=== PATIENT | female | born 1985 | race Caucasian/White ===

== ENCOUNTER 2019-02-05 12:05 | Emergency (ER) | payer MEDICAID ==
[~2019-02-05] VITALS: Ht 170.2 cm; Wt 54.0 kg
[2019-02-05 12:08] VITALS: BP 23/69; PULSE 80; RESP 18; Ht 170.2 cm; Wt 54.0 kg
[2019-02-05] MEDS ORDERED: ONDANSETRON (ODT) 4 MG TAB ODT STA (12:28)
[2019-02-05] MEDS ORDERED: HYDROCODONE/APAP (5/325) TAB PO ONE (12:30)
[2019-02-05] MEDS ORDERED: IBUP-1542 PO (13:39)
[2019-02-05] MEDS ORDERED: HYDR-4011 PO (13:39)
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
== END 2019-02-05 13:47 | disposition home or self-care (01) ==
LOC: FTE 12:05
DX: S20.219A Contusion of unspecified front wall of thorax, initial encounter (principal); R07.89 Other chest pain; V49.50XA Passenger injured in collision with unspecified motor vehicles in traffic accident, initial encounter
CPT/HCPCS: 71250; 81025; 93005; Z7610